=== PATIENT | male | born 1995 | race Native Hawaiian/Other Pacific Islander ===

== ENCOUNTER 2022-02-14 07:05 | Emergency (ER) | payer OTHER ==
[~2022-02-14] VITALS: Ht 167.6 cm; Wt 75.5 kg
[2022-02-14 09:37] LABS: GC DNA AMPLIFICATION NEGATIVE (NEGATIVE)
[2022-02-14] MEDS ORDERED: CYCL-707 PO (09:53)
[2022-02-14] MEDS ORDERED: NAPR-837 PO (09:53)
[2022-02-14] MEDS ORDERED: DOXY-443 PO (09:53)
[2022-02-14 09:59] VITALS: BP 124/71
== END 2022-02-14 10:17 | disposition home or self-care (01) ==
LOC: M ED 07:05
DX: A74.9 Chlamydial infection, unspecified (principal); L72.0 Epidermal cyst; S39.012A Strain of muscle, fascia and tendon of lower back, initial encounter; X50.0XXA Overexertion from strenuous movement or load, initial encounter